=== PATIENT | male | born 1975 | race Caucasian/White ===

== ENCOUNTER 2016-12-16 09:45 | Emergency (ER) | payer SELFPAY ==
[2016-12-16 11:13] VITALS: BP 120/82
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
== END 2016-12-16 12:22 | disposition home or self-care (01) ==
LOC: UCEAST 09:45
DX: B35.0 Tinea barbae and tinea capitis (principal); R03.0 Elevated blood-pressure reading, without diagnosis of hypertension; F17.210 Nicotine dependence, cigarettes, uncomplicated
CPT/HCPCS: 99212; G0463

== ENCOUNTER 2017-07-06 11:17 | Emergency (ER) | payer OTHER ==
[2017-07-06 12:40] VITALS: BP 135/80
--- NOTE | 2017-07-06 14:07 | RAD ---
HISTORY: Hip pain COMPARISONS: None VIEWS: 3, Frontal view of the pelvis with frontal and frog-leg views of the left hip FINDINGS: BONE DENSITY: Normal. BONES: The patient is status post internal fixation of the proximal left femur. There is no hardware failure or osteolysis. JOINTS: There is no arthropathy. ALIGNMENT: There is no dislocation. SOFT TISSUES: Unremarkable. OTHER FINDINGS: None. IMPRESSION: STATUS POST INTERNAL FIXATION OF THE LEFT FEMUR
[2017-07-06] MEDS ORDERED: Ketorolac INJ* 60 MG/2 ML VIAL IM ONE (14:25)
== END 2017-07-06 14:49 | disposition home or self-care (01) ==
LOC: UCEAST 11:17
DX: M25.559 Pain in unspecified hip (principal); F17.210 Nicotine dependence, cigarettes, uncomplicated
CPT/HCPCS: 99212; G0463; J1885

== ENCOUNTER 2018-04-09 12:02 | Emergency (ER) | payer OTHER ==
[2018-04-09 12:14] VITALS: BP 125/82
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
--- NOTE | 2018-04-09 13:10 | RAD ---
Indication: Pain near the distal end of the LEFT hip hardware for approximate one week without associated preceding injury. Comparison: July 06, 2017 radiographs Technique: AP and lateral views LEFT femur. Report: Stable appearance of the dynamic compression screw internal fixation hardware at the proximal LEFT femur. Negative for conspicuous component failure, loosening, or new osseous fracture or focal osseous lesion. 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 Mild to moderate osteoarthritis noted at the knee. Unremarkable soft tissue contours. IMPRESSION: #. No radiographic abnormality to correspond with the region of clinical concern. Stable appearance of the dynamic compression screw internal fixation at the proximal femur.
== END 2018-04-09 13:27 | disposition home health service (06) ==
LOC: UCEAST 12:02
DX: M79.652 Pain in left thigh (principal); Z88.0 Allergy status to penicillin; Z83.3 Family history of diabetes mellitus; Z80.9 Family history of malignant neoplasm, unspecified; F17.210 Nicotine dependence, cigarettes, uncomplicated
CPT/HCPCS: 99212; G0463

== ENCOUNTER 2018-04-09 14:03 | Emergency (ER) | payer OTHER ==
[2018-04-09 14:07] VITALS: BP 123/83
[2018-04-09 14:47] LABS: ABS Basophils 0.1 10^3/ul (0-0.2); ABS Eosinophils 0.4 10^3/ul (0-0.6); ABS Lymphocytes 2.9 10^3/ul (1.0-4.8); ABS Monocytes 0.7 10^3/ul (0-0.8); ABS Neutrophils 4.6 10^3/ul (1.5-7.7); ABS Nucleated RBC 0 10^3/ul; Eosinophil % 5.1 % (0-6); Hematocrit 47 % (42-52); Lymphocyte % 33.5 % (25-47); Mean Corpuscular HGB Conc 34 g/dl (31-36); Mean Corpuscular Hemoglobin 31 pg (27-31); Mean Corpuscular Volume 90 fL (80-94); Nucleated Red Blood Cells % 0.1; Platelet Count 248 10^3/ul (150-450); Red Blood Count 5.17 10^6/ul (4.00-5.40); Red Cell Distribution Width 13 % (10.5-15); White Blood Count 8.8 10^3/ul (3.5-10.8)
[2018-04-09 15:07] LABS: EGFR Non-African American 100.7 (>60)
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
--- NOTE | 2018-04-09 15:21 | RAD ---
Indication: Left leg pain. Duplex Doppler sonography of the deep venous system of the left lower extremity deep venous system was performed. Bilaterally the common femoral veins appear patent and compressible. Left proximal greater saphenous vein, proximal deep femoral vein, femoral vein, popliteal vein, posterior tibial veins and peroneal veins appear patent and compressible. IMPRESSION: NO EVIDENCE OF DEEP VENOUS THROMBOSIS IS IDENTIFIED.
== END 2018-04-09 16:17 | disposition home or self-care (01) ==
LOC: ED 14:03
DX: M79.652 Pain in left thigh (principal); F17.210 Nicotine dependence, cigarettes, uncomplicated; Z88.0 Allergy status to penicillin
CPT/HCPCS: 36415; 80053; 85025; 86140; 99282

== ENCOUNTER 2024-04-02 22:05 | Observation (INO) ==
[2024-04-02 22:26] LABS: ABS Basophils 0.1 10^3/uL (0.0-0.1); ABS Eosinophils 0.4 10^3/uL (0.0-0.5); ABS Lymphocytes 3.4 10^3/uL (1.0-4.8); ABS Monocytes 0.7 10^3/uL (0.0-1.1); ABS Neutrophils 4.3 10^3/uL (1.5-7.6); ABS Nucleated RBC 0.01 10^3/ul; Eosinophil % 4.2 %; Hematocrit 46.4 % (38-53); Hemoglobin 15.9 g/dL (13.2-16.3); Lymphocyte % 38.6 %; Mean Corpuscular Hemoglobin 30.4 pg (27-33); Mean Corpuscular Hgb Conc 34.3 g/dL (31-36); Mean Corpuscular Volume 88.6 fL (80-97); Mean Platelet Volume 6.7 fL (7.5-11.2); Nucleated Red Blood Cells % 0.1 %/100WBC (0.0-0.8); Platelet Count 288 10^3/uL (150-450); Red Blood Count 5.24 10^6/uL (4.06-5.63); White Blood Count 8.7 10^3/uL (3.6-10.2)
[2024-04-02 22:38] LABS: INR 1.12 (0.83-1.13)
[2024-04-02 23:39] LABS: Albumin 4.4 g/dL (3.2-5.2); Albumin/Globulin Ratio 1.7 (1-3); Calcium 10.2 mg/dL (8.6-10.3); Creatinine, Serum 1.28 mg/dL (0.67-1.17); Globulin 2.6 g/dL (2-4); Total Bilirubin 0.4 mg/dL (0.2-1.0); eGFR CKD-EPI 69.5 (>60)
[2024-04-03 00:07] LABS: High Sensitivity Troponin 1 Hr 74 pg/mL (<20)
[2024-04-03 02:05] LABS: High Sensitivity Troponin 3 Hr 156 pg/mL (<20)
[2024-04-03 02:47] LABS: ABS Basophils 0.1 10^3/uL (0.0-0.1); ABS Eosinophils 0.3 10^3/uL (0.0-0.5); ABS Monocytes 0.9 10^3/uL (0.0-1.1); ABS Neutrophils 5.8 10^3/uL (1.5-7.6); Eosinophil % 2.6 %; Hematocrit 46.7 % (38-53); Hemoglobin 16.2 g/dL (13.2-16.3); Mean Corpuscular Hgb Conc 34.6 g/dL (31-36); Mean Corpuscular Volume 89.7 fL (80-97); Mean Platelet Volume 6.9 fL (7.5-11.2); Platelet Count 286 10^3/uL (150-450); Red Blood Count 5.21 10^6/uL (4.06-5.63); Red Cell Distribution Width 13.1 % (12-17)
[2024-04-03] MEDS ORDERED: Ondansetron 4 mg VIAL 2 MG/ML 2 ml VIAL IV PRN (02:49)
[2024-04-03] MEDS: Heparin 5000 UNITS/ML 1 mL VIAL IV SCH (02:53)
[2024-04-03] MEDS: Heparin DRIP 25,000 UNITS BAG 25,000 UNITS/250 ML BAG IV SCH (02:54)
[2024-04-03 03:29] LABS: Creatinine, Serum 1.14 mg/dL (0.67-1.17); eGFR CKD-EPI 79.8 (>60)
[2024-04-03 03:50] LABS: HDL Cholesterol 37.7 mg/dL; Magnesium 1.9 mg/dL (1.9-2.7)
[2024-04-03] MEDS: Lactated Ringers 1000 ml BAG 1,000 ML IV ONE (05:08)
[2024-04-03] MEDS: Sulfur Hexaflouride MICROSPHR 25 MG VIAL IV ONE (09:02)
[2024-04-03 09:22] LABS: ABS Basophils 0.1 10^3/uL (0.0-0.1); ABS Eosinophils 0.1 10^3/uL (0.0-0.5); ABS Lymphocytes 2.7 10^3/uL (1.0-4.8); ABS Monocytes 0.7 10^3/uL (0.0-1.1); ABS Neutrophils 5.7 10^3/uL (1.5-7.6); Eosinophil % 1.6 %; Hematocrit 45.7 % (38-53); Hemoglobin 15.6 g/dL (13.2-16.3); Lymphocyte % 28.9 %; Mean Corpuscular Hemoglobin 30.6 pg (27-33); Mean Corpuscular Hgb Conc 34.2 g/dL (31-36); Mean Corpuscular Volume 89.4 fL (80-97); Mean Platelet Volume 7.1 fL (7.5-11.2); Platelet Count 284 10^3/uL (150-450); Red Blood Count 5.11 10^6/uL (4.06-5.63); Red Cell Distribution Width 13.3 % (12-17); White Blood Count 9.3 10^3/uL (3.6-10.2)
[2024-04-03] MEDS: NS 0.9% 1000 ml BAG 1,000 ML IV SCH ×2 (09:50→13:00)
[2024-04-03] MEDS ORDERED: Naloxone 0.4 mg VIAL 0.4 mg/ml 1 ml VIAL IV PUSH PRN (10:30)
[2024-04-03] MEDS ORDERED: Flumazenil 0.5 mg/5 ml 0.1 MG/ML 5 ml VIAL IV PRN (10:30)
[2024-04-03] MEDS ORDERED: Heparin 2 UNITS/ML 1000 mls 3,000 ML IV ONE (10:40)
[2024-04-03] MEDS ORDERED: Iohexol 350 (CONTRAST) 200 ML MDV IV ONE (10:40)
[2024-04-03] MEDS ORDERED: niCARdipine 0.1MG/ML IVPREMIX 20 MG/200 ML BAG IV ONE (10:40)
[2024-04-03] MEDS ORDERED: Lidocaine 1% MPF 5 ML VIAL ONE (10:49)
[2024-04-03] MEDS ORDERED: fentaNYL 100 mcg/2 ml 50 MCG/ML VIAL ONE ×2 (11:01→11:48)
[2024-04-03] MEDS ORDERED: Midazolam 5 mg/5 ml VIAL 1 mg/ml 5 ml VIAL (5 mg) ONE (11:01)
[2024-04-03 11:03] LABS: Calcium 9.8 mg/dL (8.6-10.3); Creatinine, Serum 0.82 mg/dL (0.67-1.17); Potassium 4.4 mmol/L (3.5-5.0)
[2024-04-03] MEDS ORDERED: nitroGLYCERIN DRIP 25,000 MCG/250 ML BTL ONE (11:06)
[2024-04-03] MEDS ORDERED: Heparin 1,000 UNIT/ML 10 ml (10,000 UNITS) CATHLAB/DIALYSIS ONE ×2 (11:19→11:45)
[2024-04-03] MEDS ORDERED: Iohexol 350 (CONTRAST) 100 ML PAK IV ONE (11:57)
[2024-04-03] MEDS: Midazolam 10 mg/10 ml VIAL 1 mg/ml 10 ml VIAL (10 mg) IV SLOW PU ONE (12:43)
[2024-04-03] MEDS: fentaNYL 100 mcg/2 ml 50 MCG/ML VIAL IV SLOW PU ONE (12:43)
[2024-04-03] MEDS ORDERED: Nicotine PATCH 21 MG/24 HR PATCH TRANSDERM PRN (14:55)
[2024-04-03] MEDS ORDERED: Nicotine GUM 4MG FRUIT FLAVOR PO PRN (14:57)
[2024-04-04 05:18] LABS: ABS Eosinophils 0.3 10^3/uL (0.0-0.5); ABS Lymphocytes 2.6 10^3/uL (1.0-4.8); ABS Neutrophils 7.7 10^3/uL (1.5-7.6); ABS Nucleated RBC 0.01 10^3/ul; Eosinophil % 2.9 %; Hematocrit 47.2 % (38-53); Hemoglobin 15.9 g/dL (13.2-16.3); Lymphocyte % 22.1 %; Mean Corpuscular Hemoglobin 30.1 pg (27-33); Mean Corpuscular Hgb Conc 33.8 g/dL (31-36); Mean Corpuscular Volume 89.2 fL (80-97); Mean Platelet Volume 6.9 fL (7.5-11.2); Nucleated Red Blood Cells % 0.1 %/100WBC (0.0-0.8); Platelet Count 262 10^3/uL (150-450); Red Blood Count 5.29 10^6/uL (4.06-5.63); Red Cell Distribution Width 13.2 % (12-17); White Blood Count 11.7 10^3/uL (3.6-10.2)
[2024-04-04 05:44] LABS: Calcium 9.3 mg/dL (8.6-10.3); Creatinine, Serum 0.86 mg/dL (0.67-1.17); Magnesium 1.8 mg/dL (1.9-2.7); eGFR CKD-EPI 107.5 (>60)
[2024-04-04] MEDS: Magnesium Sulfate 2 gm BAG 2 GM/50 ML BAG IVPB ONE (09:01)
[2024-04-04 10:06] VITALS: BP 137/76
== END 2024-04-04 12:10 | disposition home or self-care (01) ==
LOC: EDHOLD 22:05 → ED 22:05 → SUATTDRO 04-03 02:55 → AA 04-03 08:55 → EDHOLD 04-03 08:59 → AA 04-03 08:59 → ICU 04-03 13:00
PROVIDERS: ADMIT Internal Medicine; ATTEND Student in an Organized Health Care Education/Training Program